=== PATIENT | female | born 2000 | race African-American/Black ===

== ENCOUNTER 2021-05-30 20:55 | Emergency (ER) | payer MEDICAID, OTHER ==
[~2021-05-30] VITALS: Ht 160 cm; Wt 58.0 kg
[2021-05-30] MEDS ORDERED: DEXAMETHASONE 4MG TABLET PO ONE (22:00)
[2021-05-30] MEDS ORDERED: FAMOTIDINE 20MG TABLET PO ONE (22:00)
[2021-05-30] MEDS ORDERED: EPIN0.3P3 IM (22:17)
[2021-05-30 22:38] VITALS: BP 122/77
== END 2021-05-30 23:47 | disposition home or self-care (01) ==
LOC: ER 20:55
DX: T78.40XA Allergy, unspecified, initial encounter (principal); J45.909 Unspecified asthma, uncomplicated; X58.XXXA Exposure to other specified factors, initial encounter
CPT/HCPCS: 99283; J8540